=== PATIENT | female | born 1950 | race Two or more races ===

== ENCOUNTER 2023-12-24 08:00 | Outpatient (CLI) | payer OTHER ==
[2023-12-24] MEDS ORDERED: METFORMIN HCL1000 M2 PO (08:54)
[2023-12-24] MEDS ORDERED: JANUMET XR 1001 EACH PO (08:55)
[2023-12-24] MEDS ORDERED: COZAAR25 MG PO (08:55)
[2023-12-24] MEDS ORDERED: SYNTHROID75 MCG PO (08:55)
[2023-12-24] MEDS ORDERED: ZOCOR20 MG PO (08:56)
[2023-12-24] MEDS ORDERED: TOPROL XL25 M1 PO (08:56)
[2023-12-24] MEDS ORDERED: FENOFIBRIC ACI105 MG PO (08:56)
[2023-12-24 09:18] LABS: HEMATOCRIT 34.9 % (36.0-45.00); HEMOGLOBIN 11.6 g/dL (12.0-15.00); MEAN CELL VOLUME 89.9 fL (80.00-100.00); MEAN CORPUSCULAR HEMOGLOBIN 29.8 pg (27.00-32.0); MEAN CORPUSCULAR HGB CONC 33.2 g/dl (32.0-36.0); PLATELET COUNT 244 K/uL (150-450); RED BLOOD COUNT 3.88 M/uL (4.00-6.00); RED CELL DISTRIBUTION WIDTH 13.7 % (11.5-14.5)
[2023-12-24 09:21] LABS: URINE APPEARANCE Clear; URINE BILIRRUBIN Negative (NEGATIVE); URINE BLOOD Negative; URINE COLOR Yellow; URINE GLUCOSE Negative (NEGATIVE); URINE KETONE Negative (NEGATIVE); URINE LEUKOCYTE Negative; URINE NITRATE Negative; URINE PROTEIN Negative (NEGATIVE); URINE UROBILINOGEN 0.2 E.U./dl
[2023-12-24 09:22] LABS: URINE BACTERIA 11.3 uL (0.0-1933); URINE WBC 22.2 uL (0.0-23.2)
[2023-12-24 09:36] LABS: INR 1.04; PARTIAL THROMBOPLASTIN TIME 25.8 SECONDS (22.0-34.0); PROTHROMBIN TIME 11.3 SECONDS (9.0-11.5)
[2023-12-24 09:39] LABS: URINE EPITHELIAL CELLS 0.6 uL (0.0-38.8); URINE RBC 1.2 uL (0.0-20.8)
[2023-12-24 10:06] LABS: ALBUMIN 3.8 gm/dL (3.4-5.0); BILIRUBIN TOTAL 0.39 mg/dL (0.3-1.2); CALCIUM 9.8 mg/dL (8.5-10.1); CREATININE SERUM 1.12 mg/dL (0.55-1.02); GFR 47.55; GLOBULINA 3.1 G/DL (2.4-3.5); POTASSIUM 4.42 mEq/L (3.5-5.1); TOTAL PROTEIN 6.9 gm/dL (6.4-8.2)
[2023-12-31] MEDS ORDERED: CEFAZOLIN SODIUM 1,000 MG VIAL IV ONE (10:15)
[2023-12-31] MEDS ORDERED: GENTAMICIN SULFATE 40 MG/ML VIAL IR ONE (10:30)
== END 2023-12-24 08:01 | disposition home or self-care (01) ==
LOC: ADM 08:00 → RAD 08:00 → ADM 11:00 → CIR.AMB 12-31 07:00 → EDSTATUS 12-31 08:00
PROVIDERS: ATTEND Obstetrics & Gynecology Gynecology
DX: N81.11 Cystocele, midline (principal); N81.6 Rectocele; N81.5 Vaginal enterocele; R07.89 Other chest pain; I10 Essential (primary) hypertension; D50.8 Other iron deficiency anemias; R73.03 Prediabetes; D68.8 Other specified coagulation defects; N39.0 Urinary tract infection, site not specified

== ENCOUNTER 2024-06-02 06:32 | Day surgery (SDC) | payer OTHER ==
[~2024-06-02 06:32] MED LIST: COZAAR25 MG PO; FENOFIBRIC ACI105 MG PO; FOSAMAX70 MG PO; JANUMET XR 1001 EACH PO; METFORMIN HCL1000 M2 PO; SYNTHROID75 MCG PO; TOPROL XL25 M1 PO; ZOCOR20 MG PO
[2024-06-02] MEDS ORDERED: TRAM1TAB98 PO (09:59)
[2024-06-02] MEDS ORDERED: MACROBID 100 M100 MG PO (09:59)
[2024-06-02] MEDS ORDERED: ENALAPRILAT DIHYDRATE 1.25 MG/ML VIAL IV ONE (11:10)
[2024-06-02] MEDS ORDERED: MORPHINE SULFATE 4 MG/ML VIAL IV ONE (11:40)
[2024-06-02] MEDS ORDERED: ONDANSETRON HCL 2 MG/ML VIAL IV ONE (12:10)
[2024-06-02] MEDS ORDERED: CEFAZOLIN SODIUM 1,000 MG VIAL IV ONE (14:30)
[2024-06-02] MEDS ORDERED: LIDOCAINE HCL 1%/EPINEPHRINE 20ML VIAL IJ ONE (14:30)
[2024-06-02] MEDS ORDERED: GENTAMICIN SULFATE 40 MG/ML VIAL IR ONE (14:45)
== END 2024-06-02 16:15 | disposition home or self-care (01) ==
LOC: CIR.AMB 06:32
PROVIDERS: ATTEND Obstetrics & Gynecology Gynecology
DX: N81.11 Cystocele, midline (principal); N81.6 Rectocele; N81.5 Vaginal enterocele; Z88.2 Allergy status to sulfonamides; Z91.041 Radiographic dye allergy status; I10 Essential (primary) hypertension; E11.9 Type 2 diabetes mellitus without complications; E03.8 Other specified hypothyroidism